=== PATIENT | male | born 1940 | race Caucasian/White ===

== ENCOUNTER → 2017-01-29 | Outpatient (CLI) | payer MEDICARE ==
[~2017-01-29] MED LIST: ALLO100 PO; Aspir 8181 MG PO; CARV25 PO; COLCRYS0.6 MG; DULO30 PO; FISH1000 PO; HYDR1TAB94 PO; LOPE2C PO; LORA10; LORATADINE PO; LOVA40; Lisinopril2.5 MG PO; MOMENI INH; TADA10TA PO; TRAZ50 PO; VITAMIN D3 PO; Voltaren100 GM; XARELTO20 MG PO; [UNRECOGNIZED DRUG - OTHER] PO
== END | disposition home or self-care (01) ==
LOC: LAB 11:08
DX: B35.1 Tinea unguium (principal)
CPT/HCPCS: 87102

== ENCOUNTER 2017-04-12 21:37 | Emergency (ER) | payer MEDICARE ==
[~2017-04-12] VITALS: Ht 172.7 cm; Wt 79.4 kg
[~2017-04-12 21:37] MED LIST changes: -LORATADINE PO; -VITAMIN D3 PO; -[UNRECOGNIZED DRUG - OTHER] PO
[2017-04-12 22:27] LABS: Alanine Aminotransfer (ALT/SGP 45 U/L (12-78); Albumin/Globulin Ratio 1.2 (0.8-1.8); Alk Phos 62 U/L (50-136); Anion Gap 7 mmol/L (6-16); Aspartate Aminotrans (AST/SGOT 48 U/L (12-37); Bilirubin, Total 0.5 mg/dL (0.1-1.0); Blood Urea Nitrogen 20 mg/dL (8-24); Bun/Creatinine Ratio 29.9 (12.0-20.0); CO2, Blood 23 mmol/L (21-32); Calcium, Blood 8.8 mg/dL (8.5-10.1); Chloride, Blood 113 mmol/L (98-108); Creatinine, Blood 0.67 mg/dL (0.60-1.20); Globulin, Blood 3.4 g/dL (2.2-4.0); Glomerular Filtration Rate >60 (60-); Glucose, Blood 138 mg/dL (70-99); Potassium, Blood 4.9 mmol/L (3.5-5.5); Sodium, Blood 143 mmol/L (136-145); Total Protein, Blood 7.4 g/dL (6.4-8.2); Troponin I <0.015 ng/mL (0.000-0.040)
[2017-04-12 22:32] LABS: BASOPHILS ABSOLUTE AUTO 0.03 K/mm3 (0.00-0.23); BASOPHILS PERCENT AUTO 1 % (0-2); EOSINOPHILS ABSOLUTE AUTO 0.16 K/mm3 (0.00-0.68); EOSINOPHILS PERCENT AUTO 3 % (0-6); Hematocrit 41.1 % (37.0-53.0); Hemoglobin 14.6 g/dL (13.5-17.5); IMMATURE GRAN ABSOLUTE AUTO 0.02 K/mm3 (0.00-0.10); IMMATURE GRAN PERCENT AUTO 0 % (0-1); LYMPHOCYTES ABSOLUTE AUTO 1.47 K/mm3 (0.84-5.20); LYMPHOCYTES PERCENT AUTO 26 % (21-46); MONOCYTES ABSOLUTE AUTO 0.31 K/mm3 (0.16-1.47); MONOCYTES PERCENT AUTO 6 % (4-13); Mean Corpuscular HGB 30.7 pg (26.0-34.0); Mean Corpuscular HGB Conc 35.5 g/dL (31.5-36.5); Mean Corpuscular Volume 86 fL (80-100); Mean Platelet Volume 8.8 fL (9.1-12.4); NEUTROPHILS ABSOLUTE AUTO 3.66 K/mm3 (1.96-9.15); NEUTROPHILS PERCENT AUTO 65 % (41-73); Platelet Count 118 K/mm3 (150-400); RDW Coefficient Variation 13.1 % (11.7-14.2); RDW Standard Deviation 40.6 fL (35.1-46.3); Red Blood Cell Count 4.76 M/mm3 (4.30-5.90); White Blood Cell Count 5.65 K/mm3 (4.00-11.30)
[2017-12-01] MEDS ORDERED: LORATADINE PO (12:03)
[2017-12-01] MEDS ORDERED: [UNRECOGNIZED DRUG - OTHER] PO (12:05)
[2017-12-01] MEDS ORDERED: VITAMIN D3 PO (12:06)
== END 2017-04-12 23:18 | disposition home or self-care (01) ==
LOC: ER 21:37
PROVIDERS: Emergency Medicine
DX: I48.0 Paroxysmal atrial fibrillation (principal); I50.9 Heart failure, unspecified; Z95.0 Presence of cardiac pacemaker; Z79.899 Other long term (current) drug therapy; Z79.82 Long term (current) use of aspirin
CPT/HCPCS: 36415; 71046; 80053; 83735; 83880; 84484; 85025; 93005; 93010; 99284

== ENCOUNTER → 2018-03-22 | Outpatient (CLI) | payer MEDICARE ==
[~2018-03-22] MED LIST changes: +LORATADINE PO; +VITAMIN D3 PO; +[UNRECOGNIZED DRUG - OTHER] PO
== END | disposition home or self-care (01) ==
LOC: LAB SHORT 11:43 → LAB 11:43 → LAB FUT 03-16 10:30
DX: R05 Cough (principal)
CPT/HCPCS: 87070; 87205

== ENCOUNTER → 2019-01-03 | Outpatient (CLI) | payer MEDICARE ==
[2019-01-03 11:25] LABS: BASOPHILS ABSOLUTE AUTO 0.02 K/mm3 (0.00-0.23); BASOPHILS PERCENT AUTO 0 % (0-2); EOSINOPHILS ABSOLUTE AUTO 0.17 K/mm3 (0.00-0.68); EOSINOPHILS PERCENT AUTO 3 % (0-6); Hematocrit 42.4 % (37.0-53.0); Hemoglobin 14.5 g/dL (13.5-17.5); IMMATURE GRAN ABSOLUTE AUTO 0.02 K/mm3 (0.00-0.10); IMMATURE GRAN PERCENT AUTO 0 % (0-1); LYMPHOCYTES ABSOLUTE AUTO 1.37 K/mm3 (0.84-5.20); LYMPHOCYTES PERCENT AUTO 21 % (21-46); MONOCYTES ABSOLUTE AUTO 0.42 K/mm3 (0.16-1.47); MONOCYTES PERCENT AUTO 6 % (4-13); Mean Corpuscular HGB 30.2 pg (26.0-34.0); Mean Corpuscular HGB Conc 34.2 g/dL (31.5-36.5); Mean Corpuscular Volume 88 fL (80-100); Mean Platelet Volume 9.1 fL (9.1-12.4); NEUTROPHILS ABSOLUTE AUTO 4.62 K/mm3 (1.96-9.15); NEUTROPHILS PERCENT AUTO 70 % (41-73); Platelet Count 120 K/mm3 (150-400); RDW Coefficient Variation 12.7 % (11.7-14.2); RDW Standard Deviation 41.1 fL (35.1-46.3); White Blood Cell Count 6.62 K/mm3 (4.00-11.30)
[2019-01-03 11:48] LABS: Anion Gap 6 mmol/L (6-16); Blood Urea Nitrogen 20 mg/dL (8-24); Bun/Creatinine Ratio 25.6 (12.0-20.0); CO2, Blood 23 mmol/L (21-32); Calcium, Blood 9.2 mg/dL (8.5-10.1); Chloride, Blood 112 mmol/L (98-108); Creatinine, Blood 0.78 mg/dL (0.60-1.20); Glomerular Filtration Rate >60 (60-); Glucose, Blood 97 mg/dL (70-99); Potassium, Blood 4.5 mmol/L (3.5-5.5); Sodium, Blood 141 mmol/L (136-145)
== END | disposition home or self-care (01) ==
LOC: OLS 09:59 → LAB SHORT 09:59
PROVIDERS: Orthopaedic Surgery
DX: Z01.812 Encounter for preprocedural laboratory examination (principal); S68.623S Partial traumatic transphalangeal amputation of left middle finger, sequela
CPT/HCPCS: 36415; 80048; 85025

== ENCOUNTER 2019-01-07 11:29 | Day surgery (SDC) | payer MEDICARE ==
[~2019-01-07] VITALS: Ht 172.7 cm; Wt 81.5 kg
[2019-01-07] MEDS ORDERED: Lovastatin20 MG (12:47)
--- NOTE | 2019-01-07 13:22 | NUR ---
01/07/19 1322 Swathi Maagna NO NEED TO SEND SPECIMEN PER SURGEON.
== END 2019-01-07 14:27 | disposition home or self-care (01) ==
LOC: ORSCSDS 11:29
PROVIDERS: Orthopaedic Surgery
PROC: 0X6R0Z3 Detachment at Left Middle Finger, Low, Open Approach (ICD-10-PCS; principal; 2019-01-07 13:15)
DX: S68.623S Partial traumatic transphalangeal amputation of left middle finger, sequela (principal); I25.10 Atherosclerotic heart disease of native coronary artery without angina pectoris; I25.2 Old myocardial infarction; I50.9 Heart failure, unspecified; I49.9 Cardiac arrhythmia, unspecified; Z79.899 Other long term (current) drug therapy; Z79.82 Long term (current) use of aspirin
CPT/HCPCS: J0690; J2250; J2704; J3010; J7120

== ENCOUNTER 2020-05-15 07:26 | Day surgery (SDC) | payer MEDICARE ==
[~2020-05-15] VITALS: Ht 170.2 cm; Wt 78.5 kg
[~2020-05-15 07:26] MED LIST changes: +ELIQUIS5 MG PO; +LOSA25 PO; +Loratadine10 MG PO; +Lovastatin20 MG
--- NOTE | 2020-05-15 08:26 | NUR ---
05/15/20 0825 Olimpia Estrada PT. WITH CHRONIC BACK & RIGHT HIP PAIN. PT. VERBALIZES "IT'S OK WHEN LAYING BUT RATES "5" WHEN MOVING AROUND. PT. WITH CALL LIGHT WITHIN REACH. PT. VERBALIZES BEING WARM ENOUGH.
== END 2020-05-15 09:41 | disposition home or self-care (01) ==
LOC: ORSCSDS 07:26
PROVIDERS: Surgery
PROC: 0DBM8ZX Excision of Descending Colon, Via Natural or Artificial Opening Endoscopic, Diagnostic (ICD-10-PCS; principal; 2020-05-15 08:30)
PROC: 0DBK8ZX Excision of Ascending Colon, Via Natural or Artificial Opening Endoscopic, Diagnostic (ICD-10-PCS; principal; 2020-05-15 08:30)
DX: Z12.11 Encounter for screening for malignant neoplasm of colon (principal); Z86.010 Personal history of colon polyps; D12.2 Benign neoplasm of ascending colon; D12.4 Benign neoplasm of descending colon; I48.91 Unspecified atrial fibrillation; I10 Essential (primary) hypertension; Z79.01 Long term (current) use of anticoagulants; I25.10 Atherosclerotic heart disease of native coronary artery without angina pectoris; E78.5 Hyperlipidemia, unspecified; I25.2 Old myocardial infarction; Z79.899 Other long term (current) drug therapy
CPT/HCPCS: J2704; J7120

== ENCOUNTER 2021-08-23 07:23 | Day surgery (SDC) | payer MEDICARE ==
[~2021-08-23] VITALS: Ht 172.7 cm; Wt 79.5 kg
--- NOTE | 2021-08-23 10:00 | NUR ---
08/23/21 Olimpia Escobar PT. VERBALIZED AFTER USING JOYCE WIPE ON RIGHT HAND/WRIST THAT IT STARTING ITCHING. OBSERVED NO REDNESS.
== END 2021-08-23 09:55 | disposition home or self-care (01) ==
LOC: ORSCSDS 07:23
PROVIDERS: Orthopaedic Surgery
PROC: 01N50ZZ Release Median Nerve, Open Approach (ICD-10-PCS; principal; 2021-08-23 08:45)
DX: G56.01 Carpal tunnel syndrome, right upper limb (principal); I21.9 Acute myocardial infarction, unspecified; I48.0 Paroxysmal atrial fibrillation; I10 Essential (primary) hypertension; E78.5 Hyperlipidemia, unspecified; F90.9 Attention-deficit hyperactivity disorder, unspecified type; Z87.891 Personal history of nicotine dependence; Z79.899 Other long term (current) drug therapy
CPT/HCPCS: J0690; J1100; J2250; J2405; J2704; J3010; J7120

== ENCOUNTER 2022-09-16 07:18 | Day surgery (SDC) | payer MEDICARE ==
[~2022-09-16] VITALS: Ht 172.7 cm; Wt 77.9 kg
[2022-09-16] MEDS ORDERED: OMEP20ER PO (07:50)
[2022-09-16] MEDS ORDERED: LOSA25 PO (07:51)
[2022-09-16] MEDS ORDERED: PRED5 PO (07:52)
[2022-09-16] MEDS ORDERED: DULOXETINE HCL60 MG PO (07:52)
[2022-09-16] MEDS ORDERED: ATOR40TA (07:53)
[2022-09-16] MEDS ORDERED: ATOR40TA PO (07:54)
--- NOTE | 2022-09-16 08:05 | NUR ---
09/16/22 0805 Janet Sánchez 0749 PLEDGET AT 0750
[2022-09-16 09:42] VITALS: BP 110/59
== END 2022-09-16 09:30 | disposition home or self-care (01) ==
LOC: ORSCSDS 07:18
PROVIDERS: Ophthalmology
PROC: 08RK3JZ Replacement of Left Lens with Synthetic Substitute, Percutaneous Approach (ICD-10-PCS; principal; 2022-09-16 08:30)
DX: H25.12 Age-related nuclear cataract, left eye (principal); Z96.1 Presence of intraocular lens; Z95.0 Presence of cardiac pacemaker; M79.7 Fibromyalgia; I25.2 Old myocardial infarction; I25.10 Atherosclerotic heart disease of native coronary artery without angina pectoris; E78.00 Pure hypercholesterolemia, unspecified; I48.91 Unspecified atrial fibrillation; I10 Essential (primary) hypertension; F32.A Depression, unspecified; Z79.899 Other long term (current) drug therapy
CPT/HCPCS: J2250; J3010; J7040; V2632